=== PATIENT | male | born 1970 | race Caucasian/White ===

== ENCOUNTER 2020-12-26 12:30 | Emergency (ER) | payer BC ==
--- NOTE | 2020-12-26 13:11 | EDM.PDOC ---
<OfficerReg - Last Filed: 12/26/20 20:43> ED HPI GENERAL MEDICAL PROBLEM - General Chief Complaint: Respiratory Problem Stated Complaint: FLUID IN LUNGS Time Seen by Provider: 12/26/20 12:50 - Related Data Allergies Allergy/AdvReac Type Severity Reaction Status Date / Time No Known Allergies Allergy Verified 12/26/20 12:49 Home Meds: Home Meds Ascorbic Acid [Vitamin C] 1,000 mg PO BID 12/26/20 [History] Aspirin 81 mg PO DAILY 12/26/20 [History] Cholecalciferol (Vitamin D3) [Vitamin D3] 1,000 unit PO DAILY 12/26/20 [History] Clopidogrel [Plavix] 75 mg PO DAILY 12/26/20 [History] Losartan [Cozaar] 50 mg PO DAILY 12/26/20 [History] atenoloL [Atenolol] 50 mg PO BID 12/26/20 [History] atorvaSTATin [Lipitor] 80 mg PO BEDTIME 12/26/20 [History] Course - Re-Assessments/Exams Free Text/Narrative Re-Assessment/Exam: 12/26/20 20:43 Took over care from Dr. Maddox at 1800 review records this gentleman is about a month out from Covid CT scan chest x-ray consistent with Covid radiology is questioning possibility of congestive heart failure did do a BNP was about 5000 did a trial of nitro sublingual as well as a trial of Lasix he still has high oxygen requirements at 5 L Departure - Departure Disposition: Home, Self-Care 01 Clinical Impression: Pneumonia due to COVID-19 virus, Hypoxia - Discharge Information Instructions: COVID-19 Referrals: Chirag Khalil MD [Primary Care Provider] - Forms: ED Department Discharge Care Plan Goals: Avoid extra sodium intake, take antibiotic as prescribed and also take Medrol Dosepak as prescribed in the tapering doses. Return to the emergency room if you need increasing amounts of oxygen for comfort. Increase activity as tolerated and consider rechecking with your primary clinic within the next 4 to 6 days to monitor progress. <Hadley Ndiaye - Last Filed: 12/27/20 15:20> ED HPI GENERAL MEDICAL PROBLEM - General Source of Information: Reports: Patient, Family History Limitations: Reports: No Limitations - History of Present Illness INITIAL COMMENTS - FREE TEXT/NARRATIVE: 50-year-old male who was otherwise healthy until oc Covid 2 to 3 weeks ago, he did receive antibody therapy at 10 days and was actually improving but over the past 12 hours he has got increased shortness of breath and hypoxia but no fever. He went to a local clinic and had a chest x-ray which showed infiltrates and "cardiomegaly" so he was sent to the emergency room. On arrival his O2 saturations on room air were in the mid 80s. With 2 L of oxygen he increased to 96%. Vitals were otherwise stable. He denies any chest pain, his main complaint is persistent cough overnight and shortness of breath. Patient was recently hospitalized in [place] overnight where shortness of breath and a mildly elevated troponin, however troponin peaked at 0.10 and an echocardiogram was generally normal. They did not do an angiogram because of his Covid status. He has a follow-up campground caretaker appointment in 2 weeks. Onset: Sudden (Fairly suddenly worsening over the past 24 hours) Improves with: Reports: Rest (Rest is helpful, O2 is very helpful) Worsens with: Reports: Other (Any activity causes decreased oxygen) Associated Symptoms: Reports: Cough, Malaise, Shortness of Breath, Weakness. Denies: Chest Pain, Fever/Chills Past Medical History Cardiovascular History: Reports: High Cholesterol, Hypertension Respiratory History: Reports: Other (See Below) Other Respiratory History: kate virus started 3-4 weeks ago. - Infectious Disease History Infectious Disease History: Reports: Novel Coronavirus Social & Family History - Tobacco Use Tobacco Use Status *Q: Never Tobacco User ED ROS GENERAL - Review of Systems Review Of Systems: See Below Constitutional: Reports: Malaise. Denies: Fever, Chills HEENT: Denies: Rhinitis, Sinus Problem, Throat Pain Respiratory: Reports: Shortness of Breath, Cough. Denies: Sputum Cardiovascular: Denies: Chest Pain, Palpitations Endocrine: Reports: Fatigue GI/Abdominal: Denies: Abdominal Pain, Nausea, Vomiting : Reports: No Symptoms Skin: Reports: Pallor Neurological: Reports: Difficulty Walking (Due to low oxygen). Denies: Headache, Weakness Psychiatric: Reports: No Symptoms ED EXAM, GENERAL - Physical Exam Exam: See Below Exam Limited By: No Limitations General Appearance: Alert, Anxious, Mild Distress, Other (Initially) Eye Exam: Bilateral Eye: Normal Inspection Neck: Supple, Non-Tender Respiratory/Chest: Respiratory Distress (Patient is in mild to moderate respiratory distress without oxygen), Other (Significant rales were heard in the left base, scattered rhonchi diffusely with a few expiratory wheezes) Cardiovascular: Regular Rate, Rhythm. No: Tachycardia GI/Abdominal: Soft, Non-Tender Extremities: Normal Inspection. No: Pedal Edema Neurological: Alert, Oriented, No Motor/Sensory Deficits Psychiatric: Anxious Skin Exam: Warm, Dry Course - Vital Signs Last Recorded V/S: Last Vital Signs Temp 98.2 F 12/27/20 07:23 Pulse 69 12/27/20 10:11 Resp 24 H 12/27/20 10:11 BP 144/74 H 12/27/20 10:11 Pulse Ox 92 L 12/27/20 10:11 - Orders/Labs/Meds Labs: Laboratory Tests 12/26/20 12/26/20 12/26/20 Range/Units 13:20 13:20 13:20 WBC 8.4 (4.5-11.0) K/uL RBC 4.11 L (4.30-5.90) M/uL Hgb 12.3 (12.0-15.0) g/dL Hct 37.3 L (40.0-54.0) % MCV 91 (80-98) fL MCH 30 (27-31) pg MCHC 33 (32-36) % Plt Count 209 (150-400) K/uL Neut % (Auto) 68.3 H (36-66) % Lymph % (Auto) 16.4 L (24-44) % [place] % (Auto) 13.5 H (2-6) % Eos % (Auto) 1.3 L (2-4) % Baso % (Auto) 0.5 (0-1) % D-Dimer, Quantitative 1019.79 H (0.0-500.0) ng/mL Sodium 141 (140-148) mmol/L Potassium 4.1 (3.6-5.2) mmol/L Chloride 105 (100-108) mmol/L Carbon Dioxide 27 (21-32) mmol/L Anion Gap 8.8 (5.0-14.0) mmol/L BUN 11 (7-18) mg/dL Creatinine 0.9 (0.8-1.3) mg/dL Est Cr Clr Drug Dosing 89.77 mL/min Estimated GFR (MDRD) > 60 (>60) Glucose 102 (74-106) mg/dL Lactic Acid (0.4-2.0) mmol/L Calcium 8.2 L (8.5-10.1) mg/dL Total Bilirubin 1.1 H (0.2-1.0) mg/dL Direct Bilirubin (0.0-0.2) mg/dL Indirect Bilirubin AST 24 (15-37) U/L ALT 35 (12-78) U/L Alkaline Phosphatase 49 (46-116) U/L NT-Pro-B Natriuret Pep (5-125) pg/mL Total Protein 6.1 L (6.4-8.2) g/dL Albumin 3.0 L (3.4-5.0) g/dL Globulin 3.1 (2.3-3.5) g/dL Albumin/Globulin Ratio 1.0 L (1.2-2.2) 12/26/20 12/26/20 12/26/20 Range/Units 17:44 18:08 18:08 WBC (4.5-11.0) K/uL RBC (4.30-5.90) M/uL Hgb (12.0-15.0) g/dL Hct (40.0-54.0) % MCV (80-98) fL MCH (27-31) pg MCHC (32-36) % Plt Count (150-400) K/uL Neut % (Auto) (36-66) % Lymph % (Auto) (24-44) % [place] % (Auto) (2-6) % Eos % (Auto) (2-4) % Baso % (Auto) (0-1) % D-Dimer, Quantitative (0.0-500.0) ng/mL Sodium (140-148) mmol/L Potassium (3.6-5.2) mmol/L Chloride (100-108) mmol/L Carbon Dioxide (21-32) mmol/L Anion Gap (5.0-14.0) mmol/L BUN (7-18) mg/dL Creatinine (0.8-1.3) mg/dL Est Cr Clr Drug Dosing mL/min Estimated GFR (MDRD) (>60) Glucose (74-106) mg/dL Lactic Acid 0.9 (0.4-2.0) mmol/L Calcium (8.5-10.1) mg/dL Total Bilirubin 1.1 H (0.2-1.0) mg/dL Direct Bilirubin 0.27 H (0.0-0.2) mg/dL Indirect Bilirubin 0.83 AST 23 (15-37) U/L ALT 37 (12-78) U/L Alkaline Phosphatase 49 (46-116) U/L NT-Pro-B Natriuret Pep 5875 H (5-125) pg/mL Total Protein 6.1 L (6.4-8.2) g/dL Albumin 3.0 L (3.4-5.0) g/dL Globulin 3.1 (2.3-3.5) g/dL Albumin/Globulin Ratio 1.0 L (1.2-2.2) Meds: Medications Discontinued Medications Generic Name Dose Route Start Last Admin Trade Name Freq PRN Reason Stop Dose Admin Dexamethasone 8 mg 12/26/20 15:30 12/26/20 15:49 Dexamethasone 4 Mg/Ml Sdv IVPUSH 12/26/20 15:31 8 mg ONETIME ONE Administration Enoxaparin Sodium 30 mg 12/26/20 18:15 12/26/20 20:26 Enoxaparin 30 Mg/0.3 Ml Syringe SUBCUT 30 mg Q24H DYLLAN Administration Furosemide 20 mg 12/26/20 15:30 12/26/20 15:47 Furosemide 20 Mg/2 Ml Vial IVPUSH 12/26/20 15:31 20 mg ONETIME ONE Administration Furosemide 40 mg 12/26/20 19:14 12/26/20 20:03 Furosemide 40 Mg/4 Ml Vial IVPUSH 12/26/20 19:15 40 mg ONETIME ONE Administration Sodium Chloride 100 mls @ 3 mls/sec 12/26/20 14:30 12/26/20 14:48 Normal Saline IV 12/26/20 14:31 3 mls/sec ASDIRECTED DYLLAN Administration Ceftriaxone Sodium 1 gm/ 50 mls @ 100 mls/hr 12/26/20 16:00 12/26/20 16:23 Sodium Chloride IV 12/26/20 16:29 100 mls/hr ONETIME ONE Administration Remdesivir 200 mg/ Sodium 250 mls @ 250 mls/hr 12/26/20 17:44 12/26/20 20:02 Chloride IV 12/26/20 17:45 250 mls/hr ONETIME ONE Administration Iopamidol 100 ml 12/26/20 14:30 12/26/20 14:48 Iopamidol 755 Mg/Ml 100 Ml Bottle IV 12/26/20 14:31 100 ml . DIRECTED DYLLAN Administration Nitroglycerin 0.4 mg 12/26/20 19:15 12/26/20 20:17 Nitroglycerin 0.4 Mg Tab.Sl SL 12/26/20 19:16 0.4 mg ONETIME ONE Administration Sodium Chloride 10 ml 12/26/20 14:28 12/26/20 20:16 Sodium Chloride 0.9% 10 Ml Sdv FLUSH 12/26/20 14:29 10 ml ONETIME ONE Administration - Re-Assessments/Exams Free Text/Narrative Re-Assessment/Exam: 12/26/20 17:36 Patient needed significant oxygen supplementation to maintain saturations in the 90s. 12/26/20 17:36 2 view chest x-ray was taken which showed diffuse pneumonitis-like pattern with possible vascular congestion. D-dimer was elevated over 1000 which is a significant elevation from his [place] levels last week. CT of the chest with IV contrast was obtained that showed no PE. Unfortunately the patient could not tolerate without being on O2, we considered IV bolusing with steroids, antibiotic and a small amount of Lasix but his saturations dropped to 80 to 82% at rest. He will need to be improved before he is transferred. 12/26/20 17:38 White count was normal, hemoglobin normal, electrolytes normal. 12/27/20 09:14 Patient is stable as long as he has O2 supplementation. He wants to try to be discharged so oxygen can be set up from the emergency room, he can follow his O2 saturations at home and will be placed on a tapering Medrol Dosepak along continued on oral zithromax. He can return anytime if worsening. 12/27/20 09:33 Patient will be discharged with O2 supplementation as above. He can return if worsening. Departure - Departure Time of Disposition: 10:00 Sepsis Event Note (ED) - Evaluation Sepsis Screening Result: No Definite Risk - Focused Exam Vital Signs: Vital Signs Temp Pulse Resp BP Pulse Ox 12/27/20 10:11 69 24 H 144/74 H 92 L 12/27/20 07:23 98.2 F 66 22 H 141/77 H 93 L 12/27/20 03:22 60 22 H 105/61 95
--- NOTE | 2020-12-26 13:57 | CR ---
CHEST: 2 view CLINICAL HISTORY:Dyspnea COMPARISON:None FINDINGS: The heart is mildly enlarged pulmonary vascularity is obscured by bilateral predominantly interstitial infiltrates there are no effusions. IMPRESSION: Diffuse bilateral predominantly interstitial infiltrates versus edema. This may represent pneumonitis. Pulmonary edema from CHF is not excluded
[2020-12-26] MEDS ORDERED: Sodium Chloride 0.9% 10 ML SDV FLUSH ONE (14:28)
[2020-12-26] MEDS ORDERED: Sodium Chloride 0.9% 100 ML IV SCH (14:30)
[2020-12-26] MEDS ORDERED: Iopamidol 755 Mg/ML 100 ML Bottle IV SCH (14:30)
--- NOTE | 2020-12-26 15:07 | CT ---
Ang Chest CLINICAL HISTORY: Possible PE TECHNIQUE: Thin section axial contiguous tomographic sections were taken through the chest after bolus IV iodinated contrast administration. Coronal and sagittal images were reconstructed. Auto dosage reduction and iterative reconstruction techniques employed. FINDINGS: Patient has diffuse patchy areas of infiltrate and consolidation. There are diffuse groundglass opacifications. Patient has small bilateral pleural effusions. The heart is enlarged. No pulmonary emboli or vessel cut off is identified. The aortic arch is free of aneurysm or dissection. Scans in the upper abdomen show no mass or suspicious lymphadenopathy. IMPRESSION: No evidence of pulmonary embolus Diffuse patchy bilateral infiltrates and small areas of consolidation superimposed over diffuse groundglass opacities. Findings are most consistent with diffuse pneumonitis. Pulmonary edema from CHF is felt less likely Cardiomegaly with bilateral pleural effusions
[2020-12-26] MEDS ORDERED: Furosemide 20 MG/2 ML VIAL IVPUSH ONE (15:30)
[2020-12-26] MEDS ORDERED: Dexamethasone 4 MG/ML SDV IVPUSH ONE (15:30)
[2020-12-26] MEDS ORDERED: cefTRIAXone 1 GM in Sodium Chloride 0.9% 50 ML IV ONE ×2 (15:30→16:00)
[2020-12-26] MEDS ORDERED: REMDESIVIR 200 MG in Sodium Chloride 0.9% 250 ML IV ONE (17:44)
[2020-12-26] MEDS ORDERED: Enoxaparin 30 MG/0.3 ML Syringe SUBCUT SCH (18:15)
[2020-12-26] MEDS ORDERED: Furosemide 40 MG/4 ML VIAL IVPUSH ONE (19:14)
[2020-12-26] MEDS ORDERED: Nitroglycerin 0.4 MG Tab.SL SL ONE (19:15)
== END 2020-12-27 14:05 | disposition home or self-care (01) ==
LOC: JP.ED 12:30
DX: U07.1 COVID-19 (principal); J12.82 Pneumonia due to coronavirus disease 2019; R09.02 Hypoxemia; E78.00 Pure hypercholesterolemia, unspecified; I10 Essential (primary) hypertension; Z79.82 Long term (current) use of aspirin; Z79.02 Long term (current) use of antithrombotics/antiplatelets; Z79.899 Other long term (current) drug therapy
CPT/HCPCS: 36415; 71046; 71275; 80053; 80076; 83605; 83880; 85025; 85379; 96365; 96375; 96376; 99285; A9270; J0696; J1100; J1650; J1940; J7050; Q9967